=== PATIENT | female | born 1955 | race Caucasian/White ===

== ENCOUNTER → 2023-12-26 15:17 | Outpatient (REF) | payer MEDICARE, OTHER, SELFPAY | LOC: RCS 15:17 | PROVIDERS: ATTENDING PHYSICIAN Thoracic Surgery (Cardiothoracic Vascular Surgery); FAMILY PHYSICIAN Internal Medicine | DX: Z98.890 Other specified postprocedural states (principal) | CPT/HCPCS: 93306 ==

== ENCOUNTER → 2024-05-23 11:58 | Outpatient (REF) | payer MEDICARE, OTHER, SELFPAY | LOC: RAD 11:58 | PROVIDERS: ATTENDING PHYSICIAN Emergency Medicine | DX: S93.601A Unspecified sprain of right foot, initial encounter (principal) | CPT/HCPCS: 73630 ==

== ENCOUNTER → 2024-06-14 06:20 | Day surgery (SDC) | payer MEDICARE, OTHER, SELFPAY ==
[2024-06-14 08:12] VITALS: BMI 30.4
[2024-06-14 08:15] VITALS: BP 126/83
[2024-06-14 08:20] VITALS: BMI 30.4
--- NOTE | 2024-06-14 08:40 | PTCARENOTE ---
Dr. Resendiz is aware that patient can not get contacts out easily. He is ok with patient leaving her contacts in during the procedure. Will monitor patient.
[2024-06-14 09:35] VITALS: BP 138/78
[2024-06-14 09:49] VITALS: BP 136/78
[2024-06-14 09:56] VITALS: BP 133/71
== END ==
LOC: GI 06:20
PROVIDERS: ATTENDING PHYSICIAN Internal Medicine Gastroenterology
DX: K29.50 Unspecified chronic gastritis without bleeding (principal); K22.2 Esophageal obstruction; K31.89 Other diseases of stomach and duodenum; R13.10 Dysphagia, unspecified
CPT/HCPCS: 43249; 43239; 88305; 88342; C1726

== ENCOUNTER → 2024-07-05 11:24 | Outpatient (REF) | payer MEDICARE, OTHER, SELFPAY | LOC: WDC 11:24 | PROVIDERS: ATTENDING PHYSICIAN Obstetrics & Gynecology; FAMILY PHYSICIAN Internal Medicine | DX: Z12.31 Encounter for screening mammogram for malignant neoplasm of breast (principal) | CPT/HCPCS: 77063; 77067 ==

== ENCOUNTER → 2024-07-20 10:39 | Outpatient (REF) | payer MEDICARE, OTHER, SELFPAY | LOC: MRI 3T 10:39 | PROVIDERS: ATTENDING PHYSICIAN Internal Medicine Gastroenterology; FAMILY PHYSICIAN Internal Medicine | DX: R74.8 Abnormal levels of other serum enzymes (principal) | CPT/HCPCS: 74183; A9575 ==

== ENCOUNTER → 2024-10-21 09:12 | Outpatient (REF) | payer MEDICARE, OTHER, SELFPAY | LOC: RCS 09:12 | PROVIDERS: ATTENDING PHYSICIAN Internal Medicine Cardiovascular Disease; FAMILY PHYSICIAN Internal Medicine | DX: Z98.890 Other specified postprocedural states (principal) | CPT/HCPCS: 93306 ==